=== PATIENT | female | born 1940 | race Two or more races ===

== ENCOUNTER 2019-11-06 01:32 | Observation (INO) | payer MEDICARE ==
[~2019-11-06] VITALS: Ht 152.4 cm; Wt 73.1 kg
[~2019-11-06 01:32] MED LIST: ALLO300T PO; ASPI325T17 PO; ASPI81TA45 PO; Albuterol-Ipratropium Mdi INH; CHOL10003 PO; CLON0.1T22 PO; ELTR50TA PO; LEVO500T47 PO; LEVO75TA5 PO; LISI1TAB20 PO; LISI5TAB7 PO; OMEP-110 PO; PRAV40TA2 PO; PRED20TA PO; TIOT18CA INH; ZINC220C7 PO
--- NOTE | 2019-11-06 01:54 | NUR ---
Pt presents to ed c/o cp and sobxmultiple days. States cp starts in middle of chest and radiates to back, as sharp pain. Hx of copd and wears 2L O2 @home. Denies hx of mi in past. States in process of seeing cardiology for r/o of further heart disease. All monitoring applied. Call light within reach. ERP at bedside for assessment.
[2019-11-06] MEDS ORDERED: SODIUM CHLORIDE FLUSH 10ML SYR IVF ONE (02:00)
[2019-11-06 02:28] LABS: ALANINE AMINOTRANSFERASE 31 U/L (12-78); ALBUMIN 3.8 g/dL (3.4-5.0); CALCIUM 8.2 mg/dL (8.5-10.1); CHLORIDE 114 mmol/L (98-107); CREATININE 1.04 mg/dL (0.55-1.02)
[2019-11-06 02:32] LABS: ALKALINE PHOSPHATASE 33 U/L (45-117); BILIRUBIN,TOTAL 0.3 mg/dL (0.2-1.0); TOTAL PROTEIN 7.1 g/dL (6.4-8.2); TROPONIN I < 0.015 ng/mL (0.000-0.045)
[2019-11-06 03:04] LABS: MEAN CORPUSCULAR HEMOGLOBIN 29.6 pg (27.0-34.8); MEAN CORPUSCULAR HGB CONC 32.6 g/dL (32.4-35.8); MEAN CORPUSCULAR VOLUME 90.8 fL (80-100); MEAN PLATELET VOLUME 8.4 fL (7.4-10.4); PLATELET COUNT 84 x10^3/uL (130-400); RED BLOOD COUNT 4.05 x10^6/uL (3.82-5.3); RED CELL DISTRIBUTION WIDTH 13.2 % (9.6-15.2)
[2019-11-06 03:05] LABS: MD YES
[2019-11-06 03:09] LABS: BAND#(MANUAL) 0.14 x10^3/uL; BANDS%(MANUAL) 1 % (0-7); BASOS#(MANUAL) 0.14 x10^3/uL (0-0.1); BASOS% (MANUAL) 1 % (0-1); EOS#(MANUAL) 2.74 x10^3/uL (0.0-0.4); EOS% (MANUAL) 20 % (1-7); LYMPH#(MANUAL) 3.97 x10^3/uL (1-3.4); LYMPHS% (MANUAL) 29 % (22-44); MONOS% (MANUAL) 8 % (2-9); SEG#(MANUAL) 5.62 x10^3/uL (1.8-6.8); SEGS% (MANUAL) 41 % (42-75)
[2019-11-06 03:10] LABS: <PLATELET ESTIMATE> DECREASED; <PLT MORPHOLOGY> NORMAL PLT MORPH; <RBC MORPHOLOGY> NORMAL
[2019-11-06 03:52] LABS: ANION GAP 9 mmol/L (5-15)
[2019-11-06] MEDS ORDERED: ACETAMINOPHEN 325 MG TABLET PO PRN (04:30)
[2019-11-06] MEDS ORDERED: HEPARIN 5,000 UNITS/ML, 1ML SQ SCH (04:30)
[2019-11-06] MEDS ORDERED: GUAIFENESIN/DM 200-20MG, 10ML UDC PO PRN (04:30)
[2019-11-06] MEDS ORDERED: FUROSEMIDE 40 MG/4 ML IV ONE (04:30)
[2019-11-06] MEDS ORDERED: FUROSEMIDE 40 MG/4 ML ONE (04:44)
--- NOTE | 2019-11-06 05:07 | NUR ---
Pt tx to hospital bed at this time. No other immediate needs.
[2019-11-06] MEDS ORDERED: ASPIRIN 81 MG TABLET EC ONE (05:54)
[2019-11-06] MEDS ORDERED: ASPIRIN 325 MG TABLET PO SCH (06:00)
[2019-11-06] MEDS: ALBUTEROL-IPRATROPIUM MDI INH INH SCH ×5 (06:02→22:00)
--- NOTE | 2019-11-06 06:03 | NUR ---
No immediate needs of pt. Resting comfortably on hospital bed.
--- NOTE | 2019-11-06 06:57 | NUR ---
Pt bedside report to Nasir aguilera.
--- NOTE | 2019-11-06 07:04 | NUR ---
i am assumking crae of this pt from Alfonzo (ale) at this time. sbar report was exchanged at the bedside.
--- NOTE | 2019-11-06 07:22 | NUR ---
pt up to the restroom independently. her breathing is improved since her arrival here last night. we are awaiting a room assignmnet for admission.
[2019-11-06] MEDS ORDERED: ASPIRIN 81 MG TABLET CHEW PO SCH (08:12)
[2019-11-06] MEDS: ZINC SULFATE 220 MG CAPSULE PO SCH (08:18)
[2019-11-06] MEDS: CHOLECALCIFEROL 1,000 UNIT TABLET PO SCH (08:18)
[2019-11-06] MEDS: LEVOTHYROXINE 75 MCG TABLET PO SCH (08:18)
--- NOTE | 2019-11-06 08:31 | NUR ---
crissy provided and appreciated. this pt is comfortable in her room, and "enjoying her vacation!" her vs are stable and wdl. i will continue to monitor and treat as ordered, as well as prn while awaiting a room assignment for admission.
[2019-11-06] MEDS ORDERED: LISINOPRIL 5 MG TABLET ONE (09:06)
[2019-11-06] MEDS: LISINOPRIL 5 MG TABLET PO SCH (09:15)
--- NOTE | 2019-11-06 09:51 | NUR ---
PT RESTING ON A HOSPITAL BED WITH NO ACUTE CHANGES NOTED SINCE MY ARRIVAL THIS MORNING. WE WILL CONTINUE TO MONITOR AND TYREAT ORDERED, WELL PRN WHILE AWAITING A ROOM ASSIGNMENT FOR ADMISSION.
--- NOTE | 2019-11-06 11:27 | NUR ---
PT UP TO THE RESTROOM WITH A STEADY GAIT. NO ASSISTANCE PROVIDED. SHE HAS RETURNED TO BED AND STATES THAT SHE IS COMFORTABLE.
--- NOTE | 2019-11-06 12:37 | NUR ---
MEAL TRAY ORDERED FOR LUNCH. THIS PT IS SLEEPING SONOROUSLY ON A HOSPITAL BED. VS ARE STABLE, AND WDL. WE ARE AWAITING A ROOM ASSIGNMENT FOR ADMISSION. IN THE MEANTIME I WILL CONTINUE TO MONITOR AND TREAT ORDERED, WELL PRN.
--- NOTE | 2019-11-06 13:03 | NUR ---
JAILENE (RN) IS ASSUMING CARE OF THIS PT AT THIS TIME. SBAR REPORT WAS EXCHANGED AT THE BEDSIDE.
--- NOTE | 2019-11-06 13:21 | NUR ---
PT RESTING IN BED, ALL NEEDS MET AT THIS TIME. RESPRIATIONS EVEN AND UNLABORED. WILL CONTINUE TO MONITOR.
--- NOTE | 2019-11-06 14:17 | NUR ---
PT AMBULATORY TO BATHROOM, STEADY GAIT. PT VOIDED 150MLS URINE.
[2019-11-06] MEDS ORDERED: ELTR50TA PO ×2 (15:29→20:27)
--- NOTE | 2019-11-06 16:01 | NUR ---
PT LAYING IN BED, WATCHING TV, ALL NEEDS MET AT THIS TIME. SON AT BEDSIDE.
--- NOTE | 2019-11-06 17:02 | NUR ---
REPORT GIVEN TO ANGELIQUE DOMINGO.
--- NOTE | 2019-11-06 17:07 | NUR ---
REPORT RECIEVED FROM ANGELIQUE DENT. ASSUMED CARE
--- NOTE | 2019-11-06 17:27 | NUR ---
FOOD TRAY PROVIDED
[2019-11-06] MEDS: ELTROMBOPAG OLAMINE 50 MG PO SCH (19:01)
[2019-11-06] MEDS ORDERED: VALS1TAB25 PO (20:27)
[2019-11-06] MEDS ORDERED: LORA-247 PO (20:27)
[2019-11-06] MEDS ORDERED: AMLO10TA8 PO (20:27)
[2019-11-06 20:42] VITALS: BP 130/66
[2019-11-06] MEDS ORDERED: PRAVASTATIN 40 MG TABLET PO SCH (21:00)
[2019-11-07 01:52] VITALS: BP 112/71
[2019-11-07] MEDS: ALBUTEROL-IPRATROPIUM MDI INH INH SCH ×4 (03:37→13:46)
[2019-11-07 05:23] LABS: MEAN CORPUSCULAR HEMOGLOBIN 30.1 pg (27.0-34.8); MEAN CORPUSCULAR HGB CONC 33.4 g/dL (32.4-35.8); MEAN PLATELET VOLUME 8.2 fL (7.4-10.4); PLATELET COUNT 140 x10^3/uL (130-400); RED BLOOD COUNT 4.04 x10^6/uL (3.82-5.3); RED CELL DISTRIBUTION WIDTH 13.7 % (9.6-15.2)
[2019-11-07 05:25] LABS: ANION GAP 6 mmol/L (5-15); CALCIUM 8.4 mg/dL (8.5-10.1); CHLORIDE 114 mmol/L (98-107); CREATININE 1.18 mg/dL (0.55-1.02)
[2019-11-07 05:59] LABS: BASOPHILS # (AUTO) 0.06 x10^3/uL (0-0.1); BASOPHILS % (AUTO) 1 % (0-1); EOSINOPHILS # (AUTO) 2.57 x10^3/uL (0-0.4); EOSINOPHILS % (AUTO) 26 % (1-7); LYMPHOCYTES # (AUTO) 2.13 x10^3/uL (1-3.4); LYMPHOCYTES % (AUTO) 21 % (22-44); MD SCAN; MONOCYTES # (AUTO) 0.75 x10^3/uL (0.2-0.8); MONOCYTES % (AUTO) 7 % (2-9); NEUTROPHILS # (AUTO) 4.52 x10^3/uL (1.8-6.8); NEUTROPHILS % (AUTO) 45 % (42-75)
[2019-11-07 06:57] VITALS: BP 129/73
[2019-11-07] MEDS: CHOLECALCIFEROL 1,000 UNIT TABLET PO SCH (09:15)
[2019-11-07] MEDS: ZINC SULFATE 220 MG CAPSULE PO SCH (09:15)
[2019-11-07] MEDS: LEVOTHYROXINE 75 MCG TABLET PO SCH (09:16)
[2019-11-07] MEDS: LISINOPRIL 5 MG TABLET PO SCH (09:16)
[2019-11-07] MEDS ORDERED: POTASSIUM CHLORIDE 20 MEQ TAB.ER.PRT PO ONE (10:00)
[2019-11-07] MEDS ORDERED: FUROSEMIDE 20 MG TABLET PO SCH (10:00)
[2019-11-07 12:46] VITALS: BP 122/65
[2019-11-07] MEDS ORDERED: TIOT18CA INH (14:11)
[2019-11-07] MEDS ORDERED: METH4TAB2 PO (14:12)
[2019-11-07] MEDS ORDERED: POLYETHYLENE GLYCOL 17 GM PACKET NG ONE (15:00)
[2019-11-07] MEDS: ELTROMBOPAG OLAMINE 50 MG PO SCH (16:00)
== END 2019-11-07 18:55 | disposition home or self-care (01) ==
LOC: ED 03:23 → INTOOBSV 04:17 → EDIP 04:17 → 5SO 20:12
PROVIDERS: ADMIT Family Medicine; ATTEND Hospitalist
DX: J44.1 Chronic obstructive pulmonary disease with (acute) exacerbation (principal); N17.0 Acute kidney failure with tubular necrosis; J96.11 Chronic respiratory failure with hypoxia; N18.9 Chronic kidney disease, unspecified; D69.6 Thrombocytopenia, unspecified; E03.9 Hypothyroidism, unspecified; E78.5 Hyperlipidemia, unspecified; I12.9 Hypertensive chronic kidney disease with stage 1 through stage 4 chronic kidney disease, or unspecified chronic kidney disease; I51.7 Cardiomegaly; Z86.73 Personal history of transient ischemic attack (TIA), and cerebral infarction without residual deficits; Z87.891 Personal history of nicotine dependence; Z99.81 Dependence on supplemental oxygen; Z93.50 Unspecified cystostomy status; Z79.82 Long term (current) use of aspirin
CPT/HCPCS: 36415; 71045; 80048; 80053; 83880; 84145; 84484; 85025; 93005; 93306; 96374; 99285; G0378; J1940; J7512